=== PATIENT | male | born 1965 | race Caucasian/White ===

== ENCOUNTER 2017-03-21 16:29 | Emergency (ER) | payer MEDICARE | END 2017-03-21 16:30 | disposition left against medical advice (07) | LOC: D.ER 16:29 | DX: Z02.9 Encounter for administrative examinations, unspecified (principal) ==

== ENCOUNTER 2017-05-30 21:52 | Emergency (ER) | payer MEDICARE | END 2017-05-31 00:56 | disposition home or self-care (01) | LOC: D.ER 21:52 | DX: G89.18 Other acute postprocedural pain (principal); E11.9 Type 2 diabetes mellitus without complications; R10.9 Unspecified abdominal pain ==